=== PATIENT | female | born 1965 | race African-American/Black ===

== ENCOUNTER 2023-04-27 06:14 | Day surgery (SDC) | payer OTHER ==
[2023-04-25 14:14] VITALS: BMI 45.1
[2023-04-27] MEDS ORDERED: Lidocaine 1% MPF 2 ML VIAL ONE (07:27)
[2023-04-27] MEDS ORDERED: PROPOFOL 40 ML ONE (09:20)
[2023-04-27] MEDS ORDERED: Lidocaine 1% PF 5 ML VIAL ONE (09:21)
[2023-04-27] MEDS ORDERED: Glycopyrrolate 0.2 MG/ML 5 ML SYRINGE ONE (09:21)
== END 2023-04-27 10:31 | disposition home or self-care (01) ==
LOC: EDSEX → EDBD → CSHSDC 06:14
PROVIDERS: ATTEND Internal Medicine Gastroenterology
PROC: 0DJD8ZZ Inspection of Lower Intestinal Tract, Via Natural or Artificial Opening Endoscopic (ICD-10-PCS; principal; 2023-04-27)
DX: Z12.11 Encounter for screening for malignant neoplasm of colon (principal); E66.9 Obesity, unspecified; E11.9 Type 2 diabetes mellitus without complications; E78.5 Hyperlipidemia, unspecified; M54.9 Dorsalgia, unspecified; G89.29 Other chronic pain; M54.30 Sciatica, unspecified side; Z90.710 Acquired absence of both cervix and uterus; K64.9 Unspecified hemorrhoids
CPT/HCPCS: J2704